=== PATIENT | male | born 1950 | race Hispanic/Latino ===

== ENCOUNTER → 2024-04-21 | Outpatient (CLI) | payer OTHER ==
[~2024-04-21] MED LIST: AMLODIPINE PO; ATOR40TA69 PO; HYDR25TA PO; LISI40TA9 PO; METF-444 PO; VITAMIN B12 PO
== END | disposition home or self-care (01) ==
LOC: RAH 09:25
PROVIDERS: ATTEND Internal Medicine Critical Care Medicine
DX: I12.9 Hypertensive chronic kidney disease with stage 1 through stage 4 chronic kidney disease, or unspecified chronic kidney disease (principal); N18.9 Chronic kidney disease, unspecified
CPT/HCPCS: 76770; 93975

== ENCOUNTER → 2024-07-25 | Outpatient (CLI) | payer OTHER ==
--- NOTE | 2024-07-25 10:57 | HMCIMG ---
US AORTA LIMITED REASON: encounter for screening of cardiovascular disease COMPARISON: None TECHNIQUE: Screening aorta sonogram was performed. FINDINGS: There is normal appearance of the aorta. There are no visible plaques. There is no aneurysm or stenosis. Common iliac arteries appear patent as well. Incidental finding is of a possible cyst in the region of the pancreas, 5.7 x 7.0 cm. Abdomen sonogram or CT may be indicated for further evaluation of this lesion. IMPRESSION: 1. Probable 7 cm cyst or fluid collection in the region of the pancreas, CT or ultrasound recommended for further evaluation. 2. Otherwise unremarkable screening aortic ultrasound.
== END | disposition home or self-care (01) ==
LOC: RAH 08:51
PROVIDERS: ATTEND Internal Medicine Critical Care Medicine
DX: Z13.6 Encounter for screening for cardiovascular disorders (principal)
CPT/HCPCS: 76775

== ENCOUNTER → 2024-08-20 | Outpatient (CLI) | payer OTHER ==
[~2024-08-20] MED LIST changes: +IOHEXOL-350 75 ML VIAL IV ONE
--- NOTE | 2024-08-20 11:48 | HMCIMG ---
CT ABDOMEN/PELVIS W/WO CONTRAS HISTORY: Abnormal finding COMPARISON: None TECHNIQUE: Multiple sequential axial images of the abdomen and pelvis were obtained from the dome of the diaphragm through symphysis pubis. Patient was given 75 cc of Omnipaque through intravenous route. Oral contrast was given. FINDINGS: No pleural effusion is seen bilaterally. There is no evidence of parenchymal disease or pulmonary nodule of the visualized lower lungs. Degenerative changes of the thoracolumbar spine are present. The heart is not enlarged. Multiple hepatic cysts are seen with the largest measuring 2.2 cm. Liver measures 12.6 cm. There are bilateral renal cortical scarring. No bowel obstruction is seen. There is large cystic structure measuring 5.7 x 4.9 cm near the pancreatic head may be related to pseudocyst. Gastric distention is seen. No bowel obstruction is seen. The liver, spleen, adrenal glands and pancreas are unremarkable. There is no evidence of hydronephrosis bilaterally. No evidence of renal stone is seen. Fecal material is seen in the colon. There are normal size retroperitoneal and mesenteric lymph nodes. No ascites is seen. Atherosclerotic changes are present. Pelvic sidewalls are symmetric bilaterally. Bladder is well distended without wall thickening. IMPRESSION: 1. Large cystic structure near the pancreatic head may be related to pseudocyst versus cystic mass not excluded. Clinical correlation is recommended. No bowel obstruction CT was performed with one or more following dose reduction techniques: automated exposure control, adjustment of the mA and kv according to patient's size, or use of a iterative reconstruction technique.
== END | disposition home or self-care (01) ==
LOC: RAH 08:28
PROVIDERS: ATTEND Internal Medicine Critical Care Medicine
DX: K76.89 Other specified diseases of liver (principal); R93.89 Abnormal findings on diagnostic imaging of other specified body structures; M47.815 Spondylosis without myelopathy or radiculopathy, thoracolumbar region; K86.2 Cyst of pancreas; I70.90 Unspecified atherosclerosis
CPT/HCPCS: 74178; Q9967

== ENCOUNTER → 2024-09-18 | Outpatient (CLI) | payer OTHER ==
[~2024-09-18] MED LIST changes: -IOHEXOL-350 75 ML VIAL IV ONE
--- NOTE | 2024-09-18 17:09 | HMCIMG ---
CT HEART SAVER PROMOTIONAL HISTORY: Cardiac calcification scoring. FINDINGS: The cardiac calcification scoring is 2041.6. LM = 380.6, LAD = 490.7, CX = 105.5, and RCA = 1064.7 Limited examination of the heart was performed. The study is done for additional or incidental findings. IMPRESSION: Multiple simple hepatic cysts, incompletely imaged, largest of which occupies the caudate lobe and measures up to 5.0 cm. No other additional findings.
== END | disposition home or self-care (01) ==
LOC: RAH 15:06
PROVIDERS: ATTEND Internal Medicine Cardiovascular Disease
DX: Z13.6 Encounter for screening for cardiovascular disorders (principal); K76.89 Other specified diseases of liver
CPT/HCPCS: 75571

== ENCOUNTER → 2025-02-03 | Outpatient (CLI) | payer OTHER ==
[~2025-02-03] MED LIST changes: +LISI40TA15 PO; -LISI40TA9 PO
[2025-02-03] MEDS: REGADENOSON 0.4 MG/5 ML PF SYG IVP ONE (08:21)
--- NOTE | 2025-02-03 14:02 | HMCSR ---
APPROVED REPORT Height: 5 ft 5in Weight: 174 lbs TEST INDICATIONS Hypertension/HDD The imaging protocol used to acquire images was Rest Tc-99m/stress Tc-99m 1 day Consent: The procedure was explained and understood by the patient. Informerd consent was witnessed Eliecer Rowley RN First, low dose rest was performed then high dose stress. RESTING DATA: The resting ekg shows: NSR Rest SPECT myocardial perfusion imaging was performed in supine position minutes following the intra venous injection of 10 mCi of Tc-99 Sestamibi. Time of rest injection: 08:20: Date: 02/03/2025 PHARMACOLOGIC STRESS: Pharmacologic stress test was performed by injecting regadenoson 0.4 mg IV push followed by the intra venous injection of 30 mCi of Tc-99 Sestamibi. Time of stress injection: 10:24: Date: 02/03/2025 Heart Rate at time of stress injection: 60 bpm. Gated Stress SPECT was performed 60 minutes after stress injection. The images were gated to evaluate regional wall motion and calculate left ventricular ejection fracti on. STRESS DETAILS Reason for Termination: Infusion complete Stress Symptoms: No chest pain or symptoms Max HR Achieved: 81 bpm % of APMHR Achieved: 64 Max Blood Pressure: 153/92 mmHg Stress ECG: NSR Conclusion No ischemia No infarct LV ejection fraction 74% Normal LV wall motion Normal LV size at rest and stress No increased lung uptake
== END | disposition home or self-care (01) ==
LOC: RAH 07:45
PROVIDERS: ATTEND Internal Medicine Cardiovascular Disease
DX: I10 Essential (primary) hypertension (principal); E78.5 Hyperlipidemia, unspecified; Z79.899 Other long term (current) drug therapy
CPT/HCPCS: 78452; 93017; J2785; A9500 ×2